=== PATIENT | female | born 1990 | race Caucasian/White ===

== ENCOUNTER 2021-04-11 19:22 | Emergency (ER) | payer MEDICAID ==
[~2021-04-11] VITALS: Ht 157.5 cm; Wt 80.3 kg
[2021-04-11 19:30] VITALS: BP_SYST 143
--- NOTE | 2021-04-11 19:39 | NUR ---
Patient to ER bed 7 to gown for evaluation. Side rails up. Report given to NELLY MITTAL.
--- NOTE | 2021-04-11 20:05 | NUR ---
Dr. Momin bedside for pt eval
--- NOTE | 2021-04-11 20:15 | NUR ---
Pt BIB family to ED with history of GERD who presents to the emergency department for evaluation of 2 weeks of lower back pain and 3 days of suprapubic pain. Patient states that she also took an at home test 1 week ago which was positive. She does not know how far along she is in her and states that she has irregular periods. Patient has been trying to get for 8 years
[2021-04-11 20:49] LABS: CALCIUM 9.1 mg/dL (8.4-11.0); CREATININE 0.64 mg/dL (0.55-1.30); POTASSIUM 3.4 mmol/L (3.5-5.1)
--- NOTE | 2021-04-11 20:56 | NUR ---
Pt taken to Radiology in stable condition
[2021-04-11 21:11] LABS: BASOPHILS % (AUTO) 0.4 % (0.0-2.0); EOSINOPHILS # (AUTO) 0.1 K/uL (0.0-0.4); EOSINOPHILS % (AUTO) 0.5 % (0.0-4.0); HEMATOCRIT 35.1 % (36-48); HEMOGLOBIN 12.2 g/dL (12.0-16.0); LYMPHOCYTES % (AUTO) 26.1 % (20.5-51.5); MEAN CORPUSCULAR HEMOGLOBIN 29 pg (27-31); MEAN CORPUSCULAR HGB CONC 35 % (32-36); MEAN CORPUSCULAR VOLUME 84 fL (79.0-98.0); MONOCYTES # (AUTO) 0.4 K/uL (0.0-1.0); MONOCYTES % (AUTO) 3.8 % (1.7-9.3); NEUTROPHILS # (AUTO) 7.9 K/uL (1.8-7.7); NEUTROPHILS % (AUTO) 69.2 % (40.0-70.0); PLATELET COUNT (AUTO) 288 K/uL (130-430); RED BLOOD CELL COUNT(AUTO) 4.16 MIL/uL (4.2-6.2); RED CELL DISTRIBUTION WIDTH 13.3 % (9.0-15.0); WHITE BLOOD COUNT (AUTO) 11.4 K/uL (4.8-10.8)
--- NOTE | 2021-04-11 21:12 | NUR ---
Pt back from Radiology, well tolerated
[2021-04-11 22:00] VITALS: BP_SYST 134
--- NOTE | 2021-04-11 22:00 | NUR ---
Patient given written and verbal discharge instructions and verbalizes understanding. ER MD discussed with patient the results and treatment provided. Patient in stable condition. ID arm band removed. Patient educated on pain management and to follow up with PMD. Pain Scale 0/10 Opportunity for questions provided and answered.
== END 2021-04-11 22:00 | disposition home or self-care (01) ==
LOC: SED 19:22
DX: O26.892 Other specified pregnancy related conditions, second trimester (principal); R10.30 Lower abdominal pain, unspecified; M54.50 Low back pain, unspecified; K21.9 Gastro-esophageal reflux disease without esophagitis; Z3A.20 20 weeks gestation of pregnancy
CPT/HCPCS: 36415; 76856-TC; 80048; 84702; 85025; 86900; 86901; 99284